=== PATIENT | female | born 1965 | race Caucasian/White ===

== ENCOUNTER 2024-10-02 18:58 | Emergency (ER) | payer OTHER ==
[~2024-10-02] VITALS: Ht 157.5 cm; Wt 93.0 kg
[2024-10-02 19:03] VITALS: TEMP 36.7; O2SAT 97
[2024-10-02 19:21] LABS: BASOPHILS % 0.4 % (0.0-2.0); EOSINOPHILS % 0.6 % (0.0-5.0); HEMATOCRIT. 38.4 % (36.0-48.0); HEMOGLOBIN. 13.0 g/dL (12.0-16.0); LYMPHOCYTES % 24.9 % (20.0-50.0); MEAN PLATELET VOLUME 7.5 fl (7.4-10.4); MONOCYTES % 3.6 % (2.0-8.0); NEUTROPHILS % 70.5 % (40.0-76.0); PLATELET 273 x1000/uL (130-400); RED BLOOD CELL COUNT 4.22 mill/uL (4.2-5.4); RED CELL DISTRIBUTION WIDTH 12.6 % (11.6-14.6)
[2024-10-02 19:25] LABS: CLARITY URINE CLEAR (CLEAR); COLOR URINE YELLOW (YELLOW); GLUCOSE URINE NEGATIVE (NEGATIVE); KETONES URINE 1+ (NEGATIVE); LEUKOCYTE ESTERASE URINE NEGATIVE (NEGATIVE); NITRITE URINE NEGATIVE (NEGATIVE); OCCULT BLOOD URINE TRACE (NEGATIVE); PH URINE 6.0 (4.5-8.0); PROTEIN URINE TRACE (NEGATIVE); SPECIFIC GRAVITY URINE 1.036 (1.005-1.030); UROBILINOGEN URINE 1.0 E.U./dL (0.2-1.0)
[2024-10-02 19:31] LABS: BACTERIA URINE TRACE; SQUAMOUS EPITHELIAL CELL URINE 1+ /lpf (RARE/1+); WBC URINE 0-2 /hpf (0-2)
[2024-10-02 19:35] LABS: CREATININE 0.8 mg/dL (0.6-1.0)
[2024-10-02 19:36] LABS: UREA NITROGEN BLOOD 13 mg/dL (9-23)
[2024-10-02 19:37] LABS: ASPARTATE AMINOTRANSFERASE 22 IU/L (<34)
[2024-10-02 19:38] LABS: BILIRUBIN DIRECT < 0.1 mg/dL (<=3.0); BILIRUBIN TOTAL 0.3 mg/dL (0.1-1.0); PROTEIN TOTAL 7.0 g/dL (6.0-8.3)
[2024-10-02] MEDS: MECLIZINE 25MG TABLET PO ONE (19:49)
[2024-10-02] MEDS: ACETAMINOPHEN 325MG TABLET PO ONE (19:49)
[2024-10-02] MEDS ORDERED: NAPR220C61 MT (21:06)
[2024-10-02] MEDS ORDERED: MECL-299 MT (21:06)
[2024-10-02] MEDS ORDERED: NITR-87 MT (21:06)
[2024-10-02 21:28] VITALS: O2SAT 97
[2024-10-02 21:30] VITALS: BP 137/61; PULSE 63; RESP 18
[2024-10-02] MEDS: IBUPROFEN 600MG TABLET PO ONE (21:30)
== END 2024-10-02 21:49 | disposition home or self-care (01) ==
LOC: ER 18:58
DX: N39.0 Urinary tract infection, site not specified (principal); R42 Dizziness and giddiness; I10 Essential (primary) hypertension; Z79.899 Other long term (current) drug therapy
CPT/HCPCS: 99284; 70450; 80076; 80048; 81003; 85025; 36415; J8597